=== PATIENT | male | born 1975 | race Caucasian/White ===

== ENCOUNTER 2017-10-19 17:57 | Inpatient (IN) | payer OTHER ==
[2017-10-19] MEDS ORDERED: NORMAL SALINE 500 ML IV ONE (18:30)
[2017-10-19] MEDS ORDERED: DOXYCYCLINE HYCLATE INJ 100 MG VIAL IV ONE (18:30)
--- NOTE | 2017-10-19 18:31 | ER Document Report ---
ED Medical Screen (RME) - General Chief Complaint: Leg Pain Stated Complaint: LEFT LEG PAIN Time Seen by Provider: 10/19/17 18:27 TRAVEL OUTSIDE OF THE [place] IN LAST 30 DAYS: No - HPI Notes: 10/19/17 18:30 Left lower leg swelling and edema history of cellulitis in the past not diabetic - Related Data Allergies/Adverse Reactions: No Known Allergies Allergy (Unverified 10/18/14 14:46) Past Medical History - Social History Chew tobacco use (# tins/day): No Frequency of alcohol use: None Drug Abuse: None - Past Medical History Cardiac Medical History: Reports: Hx Hypertension Renal/ Medical History: Denies: Hx Peritoneal Dialysis Psychiatric Medical History: Reports: Hx Depression - Immunizations Immunizations up to date: Yes Review of Systems - Review of Systems Musculoskeletal: Other - Leg swelling pain Physical Exam - Vital signs Vitals: Temp Pulse Resp BP Pulse Ox 99.8 F 117 H 20 171/94 H 96 10/19/17 18:03 10/19/17 18:03 10/19/17 18:03 10/19/17 18:03 10/19/17 18:03 - Respiratory Respiratory status: No respiratory distress Chest status: Nontender Breath sounds: Normal Chest palpation: Normal Course - Vital Signs Vital signs: Temp Pulse Resp BP Pulse Ox 99.8 F 117 H 20 171/94 H 96 10/19/17 18:03 10/19/17 18:03 10/19/17 18:23 10/19/17 18:03 10/19/17 18:03
[2017-10-19 19:11] LABS: ABSOLUTE EOSINOPHILS # (AUTO) 0.1 10^3/uL (0.0-0.6); ABSOLUTE LYMPHOCYTES (AUTO) 1.3 10^3/uL (0.5-4.7); ABSOLUTE MONOCYTES (AUTO) 0.6 10^3/uL (0.1-1.4); ABSOLUTE NEUT (AUTO) 6.9 10^3/uL (1.7-8.2); BASOPHILS % (AUTO) 0.5 % (0-2); EOSINOPHILS % (AUTO) 0.7 % (0-6); HEMATOCRIT 48.8 % (37.9-51.0); HEMOGLOBIN 16.6 g/dL (13.5-17.0); LYMPHOCYTES % (AUTO) 14.6 % (13-45); MEAN CORPUSCULAR HEMOGLOBIN 31.3 pg (27.0-33.4); MEAN CORPUSCULAR VOLUME 92 fl (80-97); MONOCYTES % (AUTO) 6.8 % (3-13); PLATELET COUNT 239 10^3/uL (150-450); RED CELL DISTRIBUTION WIDTH 13.7 % (11.5-14.0); SEGMENTED NEUTROPHILS % (AUTO) 77.4 % (42-78); TOTAL CELLS COUNTED % (AUTO) 100 %; WHITE BLOOD COUNT 8.9 10^3/uL (4.0-10.5)
--- NOTE | 2017-10-19 19:30 | ER Document Report ---
ED Extremity Problem, Lower - General Chief Complaint: Leg Pain Stated Complaint: LEFT LEG PAIN Time Seen by Provider: 10/19/17 18:27 Notes: 42-year-old male patient to the emergency department chief complaint of left lower extremity pain and swelling. Patient states that he has redness and swelling. Thinks that he has MRSA. Has had in the past. Followed by Dr. Delgado but has not seen him in several years but wants to be as patient still. Also complaining of mild cough. Intermittent shortness of breath. TRAVEL OUTSIDE OF THE [place] IN LAST 30 DAYS: No - HPI Patient complains to provider of: Pain, Swelling Location: Leg Where: Home Onset/Duration: Gradual Quality of pain: Throbbing Severity: Moderate Pain Level: 3 - Related Data Allergies/Adverse Reactions: No Known Allergies Allergy (Unverified 10/18/14 14:46) Past Medical History - General Information source: Patient - Social History Smoking Status: Never Smoker Chew tobacco use (# tins/day): No Frequency of alcohol use: None Drug Abuse: None Lives with: Family Family History: Reviewed & Not Pertinent Patient has suicidal ideation: No Patient has homicidal ideation: No - Past Medical History Cardiac Medical History: Reports: Hx Hypertension Renal/ Medical History: Denies: Hx Peritoneal Dialysis Psychiatric Medical History: Reports: Hx Depression - Immunizations Immunizations up to date: Yes Review of Systems - Review of Systems Constitutional: No symptoms reported EENT: No symptoms reported Cardiovascular: No symptoms reported Respiratory: Cough, Short of breath, Wheezing Gastrointestinal: No symptoms reported Genitourinary: No symptoms reported Male Genitourinary: No symptoms reported Musculoskeletal: See HPI, Leg swelling, Ankle swelling Skin: Change in color, Other - Possible cellulitis. Hematologic/Lymphatic: No symptoms reported Neurological/Psychological: No symptoms reported Physical Exam - Vital signs Vitals: Temp Pulse Resp BP Pulse Ox 99.8 F 117 H 20 171/94 H 96 10/19/17 18:03 10/19/17 18:03 10/19/17 18:03 10/19/17 18:03 10/19/17 18:03 Interpretation: Tachycardic - General General appearance: Appears well, Alert - HEENT Head: Normocephalic, Atraumatic Eyes: Normal Pupils: PERRL - Respiratory Respiratory status: No respiratory distress Chest status: Nontender Breath sounds: Nonproductive cough. No: Rales, Rhonchi Chest palpation: Normal - Cardiovascular Rhythm: Tachycardia Heart sounds: Normal auscultation Murmur: No - Abdominal Inspection: Normal Distension: No distension Bowel sounds: Normal Tenderness: Nontender Organomegaly: No organomegaly - Back Back: Normal, Nontender - Extremities General upper extremity: Normal inspection, Nontender, Normal color, Normal ROM , Normal temperature General lower extremity: Other - Patient has a swollen left lower extremity from the knee down. Red, warm to the touch. No lymphangitic streaking. pedis pulses intact bilateral lower extremity. Left lower extremity remarkably swollen as compared to the right lower extremity. No: Delmar's sign - Neurological Neuro grossly intact: Yes Cognition: Normal Orientation: AAOx4 John Coma Scale Eye Opening: Spontaneous Herscher Coma Scale Verbal: Oriented Herscher Coma Scale Motor: Obeys Commands Herscher Coma Scale Total: 15 Speech: Normal Motor strength normal: LUE, RUE, LLE, RLE Sensory: Normal - Psychological Associated symptoms: Normal affect, Normal mood - Skin Skin Temperature: Warm Skin Moisture: Dry Skin Color: Other - Redness noted to the left lower extremity from the knee down , NO obvious draining lesions Course - Re-evaluation Re-evalutation: 10/19/17 19:44 Patient does not have a fever. Is tachycardic with the left lower extremity swelling. Will need to rule out DVT and PE if DVT study is positive. More likely this represents cellulitis. Patient is a patient of Dr. Palmers. Will consult with him for possible admit as well. 10/19/17 21:10 Laboratory 10/19/17 10/19/17 18:51 18:51 WBC 8.9 RBC 5.30 Hgb 16.6 Hct 48.8 MCV 92 MCH 31.3 MCHC 34.0 RDW 13.7 Plt Count 239 Seg Neutrophils % 77.4 Lymphocytes % 14.6 Monocytes % 6.8 Eosinophils % 0.7 Basophils % 0.5 Absolute Neutrophils 6.9 Absolute Lymphocytes 1.3 Absolute Monocytes 0.6 Absolute Eosinophils 0.1 Absolute Basophils 0.0 Sodium 139.5 Potassium 4.3 Chloride 98 Carbon Dioxide 27 Anion Gap 15 BUN 13 Creatinine 0.83 Est GFR ( Amer) > 60 Est GFR (Non-Af Amer) > 60 Glucose 198 H Calcium 10.3 H Chest X-Ray 06/12/18 19:39 IMPRESSION: Borderline cardiomegaly without CHF. She with extremely swollen red leg mild tachycardia and low-grade fever. More likely this represents cellulitis. Preliminary report on ultrasound does not represent a DVT. Patient requests being admitted by Dr. Delgado if needed. At this time I think patient would benefit from admission. Patient likely has diabetes but undiagnosed as well. Consulted with Dr. Delgado. Will admit at this time. - Vital Signs Vital signs: Temp Pulse Resp BP Pulse Ox 99.8 F 117 H 20 171/94 H 96 10/19/17 18:03 10/19/17 18:03 10/19/17 18:23 10/19/17 18:03 10/19/17 18:03 - Laboratory Result Diagrams: 10/19/17 18:51 10/19/17 18:51 Laboratory results interpreted by me: 10/19/17 18:51 Glucose 198 H Calcium 10.3 H Discharge - Discharge Clinical Impression: Left leg cellulitis Condition: Good Disposition: ADMITTED INPATIENT Admitting Provider: Danny Unit Admitted: Medical Floor
[2017-10-19] MEDS ORDERED: KETOROLAC TROMETHAMINE INJ/PF 30 MG/1 ML SDV IV ONE (19:33)
[2017-10-19 19:43] LABS: ANION GAP 15 (5-19); BLOOD UREA NITROGEN 13 mg/dL (7-20); CALCIUM 10.3 mg/dL (8.4-10.2); CARBON DIOXIDE 27 mmol/L (22-30); CHLORIDE 98 mmol/L (98-107); GLUCOSE 198 mg/dL (75-110); POTASSIUM 4.3 mmol/L (3.6-5.0); SODIUM 139.5 mmol/L (137-145)
[2017-10-19] MEDS ORDERED: AMPICILLIN SOD/SULBACTAM 3 GM VIAL IV ONE (21:07)
--- NOTE | 2017-10-19 21:08 | RADIOLOGY REPORT (SQ) ---
EXAM DESCRIPTION: CHEST SINGLE VIEW COMPLETED DATE/TIME: 10/19/2017 9:00 pm REASON FOR STUDY: sob COMPARISON: 10/20/2014 EXAM PARAMETERS: NUMBER OF VIEWS: One view. TECHNIQUE: Single frontal radiographic view of the chest acquired. RADIATION DOSE: NA LIMITATIONS: None. FINDINGS: LUNGS AND PLEURA: No opacities, masses or pneumothorax. No pleural effusion. MEDIASTINUM AND HILAR STRUCTURES: No masses. Contour normal. HEART AND VASCULAR STRUCTURES: Cardiac silhouette is mildly enlarged. BONES: No acute findings. HARDWARE: None in the chest. OTHER: No other significant finding. IMPRESSION: Borderline cardiomegaly without CHF. TECHNICAL DOCUMENTATION: JOB ID: [id number] [employer]- All Rights Reserved Reading location - IP/workstation name: [email or web address]
[2017-10-19] MEDS ORDERED: HYDROCODONE/ACETAMINOPHEN 5-325 MG TABLET PO ONE (21:12)
[2017-10-19] MEDS ORDERED: CARVEDILOL 3.125 MG TABLET PO ONE (23:00)
[2017-10-19] MEDS ORDERED: AMPICILLIN SOD/SULBACTAM 3 GM VIAL IV PRN (23:41)
[2017-10-19] MEDS ORDERED: SERTRALINE HCL 50 MG TABLET PO ONE (23:45)
[2017-10-19] MEDS ORDERED: HYDROCHLOROTHIAZIDE 12.5 MG CAPSULE PO ONE (23:45)
[2017-10-20] MEDS ORDERED: AMPICILLIN SODIUM/SULBACTAM NA 3 GM in NORMAL SALINE 100 ML IV SCH ×2
[2017-10-20] MEDS: AMPICILLIN SODIUM/SULBACTAM NA 3 GM in NORMAL SALINE 100 ML IV SCH ×4 (02:58→22:00)
[2017-10-20 07:02] LABS: ABSOLUTE EOSINOPHILS # (AUTO) 0.1 10^3/uL (0.0-0.6); ABSOLUTE LYMPHOCYTES (AUTO) 1.7 10^3/uL (0.5-4.7); ABSOLUTE MONOCYTES (AUTO) 0.9 10^3/uL (0.1-1.4); ABSOLUTE NEUT (AUTO) 5.6 10^3/uL (1.7-8.2); BASOPHILS % (AUTO) 0.5 % (0-2); EOSINOPHILS % (AUTO) 1.7 % (0-6); HEMATOCRIT 40.9 % (37.9-51.0); LYMPHOCYTES % (AUTO) 19.8 % (13-45); MEAN CORPUSCULAR HEMOGLOBIN 31.7 pg (27.0-33.4); MEAN CORPUSCULAR HGB CONC 34.4 g/dL (32.0-36.0); MEAN CORPUSCULAR VOLUME 92 fl (80-97); MONOCYTES % (AUTO) 10.9 % (3-13); PLATELET COUNT 207 10^3/uL (150-450); RED BLOOD COUNT 4.44 10^6/uL (4.35-5.55); RED CELL DISTRIBUTION WIDTH 13.7 % (11.5-14.0); SEGMENTED NEUTROPHILS % (AUTO) 67.1 % (42-78); TOTAL CELLS COUNTED % (AUTO) 100 %; WHITE BLOOD COUNT 8.3 10^3/uL (4.0-10.5)
[2017-10-20 07:09] LABS: ANION GAP 11 (5-19); BLOOD UREA NITROGEN 14 mg/dL (7-20); CALCIUM 9.1 mg/dL (8.4-10.2); CARBON DIOXIDE 25 mmol/L (22-30); CHLORIDE 102 mmol/L (98-107); GLUCOSE 258 mg/dL (75-110); POTASSIUM 3.8 mmol/L (3.6-5.0); SODIUM 138.4 mmol/L (137-145)
[2017-10-20 07:10] LABS: HEMOGLOBIN 14.1 g/dL (13.5-17.0)
--- NOTE | 2017-10-20 08:06 | XCELERA REPORT ---
[address] [address] Lower Extremity Venous Evaluation Name: MAXIMILIAN TORRES Age: 42 yrs Gender: Male : 1975 Patient Status: Emergency Patient Location: ER Study Date: 10/19/2017 08:08 PM Procedure: Color flow and duplex imaging of the veins of the left lower extremity as well as the right Common Femoral vein. Reason For Study: lle swelling Ordering Physician: NICHOLAS EMMANUEL Performed By: Sadaf Salinas Right Sided Venous Evaluation The right common femoral vein is fully compressible. Spontaneous and phasic flow is present in the right common femoral vein. Left Sided Venous Evaluation Normal vessel filling wall to wall, compression and augmentation as well as Colour flow down to the infrageniculate veins. Interpretation Summary No duplex evidence of DVT or obstruction in the left lower extremity nor in the right Common Femoral vein. : NICHOLAS EMMANUEL > Obdulio Betancourt
[2017-10-20] MEDS ORDERED: ACETAMINOPHEN 325 MG TABLET ONE (08:54)
[2017-10-20] MEDS: HYDROCHLOROTHIAZIDE 12.5 MG CAPSULE PO SCH (09:05)
[2017-10-20] MEDS: CARVEDILOL 3.125 MG TABLET PO SCH ×2 (09:06→22:00)
[2017-10-20] MEDS: SERTRALINE HCL 50 MG TABLET PO SCH (09:09)
[2017-10-20] MEDS: ENOXAPARIN SODIUM INJ 40 MG/0.4 ML DISP.SYRIN SUBCUT SCH (09:09)
--- NOTE | 2017-10-20 18:52 | PDOC H&P ---
History of Present Illness Admission Date/PCP: 10/19/17 21:26 History of Present Illness: MAXIMILIAN TORRES is a 42 year old male, He came to the emergency room for evaluation of severe redness of the left leg, and swelling for the last few days. Patient follows with me in the office but I have not seen him in 3 years when he came to emergency room he wants me to admit same to the hospital because this was recommended by the emergency room physician, he does not have a documented history of diabetes but the hemoglobin A1c was 10.5 his serum glucose was about 200 suggesting is a diabetic but was not diagnosed further questioning he admitted to polyuria polydipsia. There is severe inflammation of the leg tender to touch the CRP/C-reactive protein is 485, it should be 0, ESR is 78 it should be 0-20..A venous Doppler was done in the emergency room, it was negative for deep vein thrombosis Past Medical History Cardiac Medical History: Reports: Hypertension Pulmonary Medical History: Reports: Pneumonia Neurological Medical History: Reports: Migraine Endocrine Medical History: Reports: Obesity Psychiatric Medical History: Reports: Depression Social History Lives with: Family Smoking Status: Never Smoker Frequency of Alcohol Use: Rare Hx Recreational Drug Use: No Drugs: None Hx Prescription Drug Abuse: No Family History Family History: Reviewed & Not Pertinent Parental Family History Reviewed: Yes Children Family History Reviewed: Yes Sibling(s) Family History Reviewed.: Yes Medication/Allergy Home Medications: Carvedilol [Coreg 3.125 mg Tablet] 3.125 mg PO Q12 10/19/17 Hydrochlorothiazide [Hydrodiuril 12.5 mg Capsule] 12.5 mg PO DAILY 10/19/17 Sertraline HCl [Zoloft 50 mg Tablet] 50 mg PO DAILY 10/19/17 Allergies/Adverse Reactions: No Known Allergies Allergy (Unverified 10/18/14 14:46) Review of Systems Constitutional: ABSENT: chills, fever(s), headache(s), weight gain, weight loss Eyes: ABSENT: visual disturbances Ears: ABSENT: hearing changes Cardiovascular: ABSENT: chest pain, dyspnea on exertion, edema, orthropnea, palpitations Respiratory: ABSENT: cough, hemoptysis Gastrointestinal: ABSENT: abdominal pain, constipation, diarrhea, hematemesis, hematochezia, nausea, vomiting Genitourinary: ABSENT: dysuria, hematuria Musculoskeletal: ABSENT: joint swelling Integumentary: PRESENT: erythema. ABSENT: rash, wounds Neurological: ABSENT: abnormal gait, abnormal speech, confusion, dizziness, focal weakness, syncope Psychiatric: ABSENT: anxiety, depression, homidical ideation, suicidal ideation Endocrine: PRESENT: heat intolerance, polydipsia, polyuria Hematologic/Lymphatic: ABSENT: easy bleeding, easy bruising, lymphadenopathy Physical Exam Vital Signs: Temp Pulse Resp BP Pulse Ox 98.5 F 92 18 142/83 H 95 10/20/17 15:43 10/20/17 15:43 10/20/17 15:43 10/20/17 15:43 10/20/17 15:43 Intake & Output 10/19/17 10/20/17 10/21/17 06:59 06:59 06:59 Intake Total 1493 Balance 1493 Weight 159.3 kg General appearance: PRESENT: no acute distress, well-developed, well-nourished Head exam: PRESENT: atraumatic, normocephalic Eye exam: PRESENT: conjunctiva pink, EOMI, PERRLA. ABSENT: scleral icterus Ear exam: PRESENT: normal external ear exam Mouth exam: PRESENT: moist, tongue midline Neck exam: PRESENT: full ROM Respiratory exam: PRESENT: clear to auscultation aniya Cardiovascular exam: PRESENT: RRR, +S1, +S2 Vascular exam: PRESENT: normal capillary refill GI/Abdominal exam: PRESENT: normal bowel sounds, soft Rectal exam: PRESENT: deferred Extremities exam: PRESENT: other - Severe erythema, swelling of the left leg, tender to touch Neurological exam: PRESENT: alert, awake, oriented to person, oriented to place , oriented to time, oriented to situation, CN II-XII grossly intact Psychiatric exam: PRESENT: appropriate affect, normal mood Skin exam: PRESENT: dry, intact, warm Results Laboratory Results: 10/20/17 06:46 10/20/17 06:46 10/20/17 10/20/17 06:46 06:46 WBC 8.3 RBC 4.44 Hgb 14.1 D Hct 40.9 MCV 92 MCH 31.7 MCHC 34.4 RDW 13.7 Plt Count 207 Seg Neutrophils % 67.1 Lymphocytes % 19.8 Monocytes % 10.9 Eosinophils % 1.7 Basophils % 0.5 Absolute Neutrophils 5.6 Absolute Lymphocytes 1.7 Absolute Monocytes 0.9 Absolute Eosinophils 0.1 Absolute Basophils 0.0 Sodium 138.4 Potassium 3.8 Chloride 102 Carbon Dioxide 25 Anion Gap 11 BUN 14 Creatinine 0.79 Est GFR ( Amer) > 60 Est GFR (Non-Af Amer) > 60 Glucose 258 H Calcium 9.1 Impressions: Chest X-Ray 10/19/17 19:39 IMPRESSION: Borderline cardiomegaly without CHF. Assessment & Plan - Diagnosis (1) Left leg cellulitis Is this a current diagnosis for this admission?: Yes Plan: Start IV antibiotic Unasyn (2) New onset type 1 diabetes mellitus, uncontrolled Is this a current diagnosis for this admission?: Yes Plan: Start IV fluid diabetic education (3) Morbid obesity Is this a current diagnosis for this admission?: Yes
[2017-10-20] MEDS ORDERED: DEXTROSE 50%-WATER 25 GM/50 ML DISP.SYRIN IV PRN ×2 (18:54)
[2017-10-20] MEDS ORDERED: DEXTROSE 40% GEL 15 GM TUBE PO PRN ×2 (18:54)
[2017-10-20] MEDS ORDERED: GLUCAGON,HUMAN RECOMB 1 MG INJ IM PRN (18:54)
[2017-10-20] MEDS: CLINDAMYCIN 600 MG/D5W RTU 600 MG/50 ML RTUPB IV SCH (22:00)
[2017-10-20] MEDS: INSULIN LISPRO 100 UNIT/ML 3 ML VIAL SUBCUT PRN (23:36)
[2017-10-20] MEDS: ACETAMINOPHEN 325 MG TABLET PO PRN (23:55)
[2017-10-21] MEDS: AMPICILLIN SODIUM/SULBACTAM NA 3 GM in NORMAL SALINE 100 ML IV SCH ×4 (03:13→20:34)
[2017-10-21] MEDS: CLINDAMYCIN 600 MG/D5W RTU 600 MG/50 ML RTUPB IV SCH ×3 (05:33→22:02)
[2017-10-21] MEDS: ACETAMINOPHEN 325 MG TABLET PO PRN ×2 (05:33→20:34)
[2017-10-21 06:46] LABS: HEMATOCRIT 41.1 % (37.9-51.0); MEAN CORPUSCULAR HGB CONC 33.9 g/dL (32.0-36.0); MEAN CORPUSCULAR VOLUME 91 fl (80-97); PLATELET COUNT 251 10^3/uL (150-450); RED BLOOD COUNT 4.51 10^6/uL (4.35-5.55); RED CELL DISTRIBUTION WIDTH 13.7 % (11.5-14.0); WHITE BLOOD COUNT 8.3 10^3/uL (4.0-10.5)
[2017-10-21 06:58] LABS: ANION GAP 9 (5-19); BLOOD UREA NITROGEN 11 mg/dL (7-20); CARBON DIOXIDE 28 mmol/L (22-30); CHLORIDE 103 mmol/L (98-107); GLUCOSE 231 mg/dL (75-110); POTASSIUM 3.6 mmol/L (3.6-5.0); SODIUM 140.2 mmol/L (137-145)
[2017-10-21 07:40] LABS: ABSOLUTE LYMPHOCYTES# (MANUAL) 2.2 10^3/uL (0.5-4.7); ABSOLUTE MONOCYTES # (MANUAL) 1.1 10^3/uL (0.1-1.4); ABSOLUTE NEUTROPHILS# (MANUAL) 4.6 10^3/uL (1.7-8.2); BAND NEUTROPHILS % (MANUAL) 1 % (3-5); BASOPHILS % (MANUAL) 2 % (0-2); EOSINOPHILS % (MANUAL) 3 % (0-6); LYMPHOCYTES % (MANUAL) 24 % (13-45); METAMYELOCYTES % (MANUAL) 1 % (0); MONOCYTES % (MANUAL) 13 % (3-13); SEGMENTED NEUTROPHILS % (MAN) 54 % (42-78); TOTAL CELLS COUNTED 100
[2017-10-21 07:41] LABS: HYPOCHROMASIA SLIGHT; PLATELET COMMENT ADEQUATE; POLYCHROMASIA SLIGHT; TOXIC GRANULATION 1+
[2017-10-21] MEDS: METFORMIN HCL 500 MG TABLET PO SCH ×2 (08:11→16:03)
[2017-10-21] MEDS: INSULIN LISPRO 100 UNIT/ML 3 ML VIAL SUBCUT PRN ×2 (08:11→12:54)
[2017-10-21] MEDS: ENOXAPARIN SODIUM INJ 40 MG/0.4 ML DISP.SYRIN SUBCUT SCH (09:58)
[2017-10-21] MEDS: CARVEDILOL 3.125 MG TABLET PO SCH ×2 (09:59→22:02)
[2017-10-21] MEDS: SERTRALINE HCL 50 MG TABLET PO SCH (09:59)
[2017-10-21] MEDS: HYDROCHLOROTHIAZIDE 12.5 MG CAPSULE PO SCH (10:00)
[2017-10-21] MEDS: NORMAL SALINE 1000 ML 1,000 ML IV PRN (15:58)
--- NOTE | 2017-10-21 20:02 | PDOC PROGRESS REPORT ---
Subjective Progress Note for:: 10/21/17 Subjective:: He has severe cellulitis, on double antibiotic, newly diagnosed type 2 diabetes Reason For Visit: CELLULITIS, MORBID OBESITY Physical Exam Vital Signs: Temp Pulse Resp BP Pulse Ox 97.8 F 83 18 133/88 H 94 10/21/17 15:43 10/21/17 15:43 10/21/17 15:43 10/21/17 15:43 10/21/17 15:43 Intake & Output 10/20/17 10/21/17 10/22/17 06:59 06:59 06:59 Intake Total 2613 2227 Balance 2613 2227 Weight 159.3 kg 160.3 kg General appearance: PRESENT: no acute distress Eye exam: PRESENT: PERRLA Respiratory exam: PRESENT: clear to auscultation aniya Cardiovascular exam: PRESENT: +S1, +S2 GI/Abdominal exam: PRESENT: soft Extremities exam: PRESENT: other - Left leg erythema, swelling Neurological exam: PRESENT: alert, CN II-XII grossly intact Results Laboratory Results: 10/21/17 06:35 10/21/17 06:35 10/21/17 10/21/17 06:35 06:35 WBC 8.3 RBC 4.51 Hgb 14.0 Hct 41.1 MCV 91 MCH 31.0 MCHC 33.9 RDW 13.7 Plt Count 251 Seg Neutrophils % Not Reportable Lymphocytes % Not Reportable Monocytes % Not Reportable Eosinophils % Not Reportable Basophils % Not Reportable Absolute Neutrophils Not Reportable Absolute Lymphocytes Not Reportable Absolute Monocytes Not Reportable Absolute Eosinophils Not Reportable Absolute Basophils Not Reportable Sodium 140.2 Potassium 3.6 Chloride 103 Carbon Dioxide 28 Anion Gap 9 BUN 11 Creatinine 0.69 Est GFR ( Amer) > 60 Est GFR (Non-Af Amer) > 60 Glucose 231 H Calcium 9.0 Impressions: Chest X-Ray 10/19/17 19:39 IMPRESSION: Borderline cardiomegaly without CHF. Assessment & Plan - Diagnosis (1) Left leg cellulitis Is this a current diagnosis for this admission?: Yes Plan: Continue IV antibiotic (2) New onset type 1 diabetes mellitus, uncontrolled Is this a current diagnosis for this admission?: Yes (3) Morbid obesity Is this a current diagnosis for this admission?: Yes
[2017-10-22] MEDS: AMPICILLIN SODIUM/SULBACTAM NA 3 GM in NORMAL SALINE 100 ML IV SCH ×4 (02:45→22:13)
[2017-10-22] MEDS: CLINDAMYCIN 600 MG/D5W RTU 600 MG/50 ML RTUPB IV SCH ×3 (05:10→22:14)
[2017-10-22 06:38] LABS: HEMATOCRIT 41.2 % (37.9-51.0); HEMOGLOBIN 14.1 g/dL (13.5-17.0); MEAN CORPUSCULAR HEMOGLOBIN 31.3 pg (27.0-33.4); MEAN CORPUSCULAR HGB CONC 34.2 g/dL (32.0-36.0); MEAN CORPUSCULAR VOLUME 92 fl (80-97); PLATELET COUNT 295 10^3/uL (150-450); RED CELL DISTRIBUTION WIDTH 14.1 % (11.5-14.0); WHITE BLOOD COUNT 9.1 10^3/uL (4.0-10.5)
[2017-10-22 06:48] LABS: ANION GAP 12 (5-19); BLOOD UREA NITROGEN 10 mg/dL (7-20); CALCIUM 9.2 mg/dL (8.4-10.2); CARBON DIOXIDE 29 mmol/L (22-30); CHLORIDE 100 mmol/L (98-107); GLUCOSE 160 mg/dL (75-110); POTASSIUM 4.4 mmol/L (3.6-5.0); SODIUM 140.6 mmol/L (137-145)
[2017-10-22 07:40] LABS: ABSOLUTE LYMPHOCYTES# (MANUAL) 2.2 10^3/uL (0.5-4.7); ABSOLUTE MONOCYTES # (MANUAL) 1.4 10^3/uL (0.1-1.4); BAND NEUTROPHILS % (MANUAL) 1 % (3-5); BASOPHILS % (MANUAL) 1 % (0-2); EOSINOPHILS % (MANUAL) 5 % (0-6); LYMPHOCYTES % (MANUAL) 23 % (13-45); METAMYELOCYTES % (MANUAL) 3 % (0); MONOCYTES % (MANUAL) 15 % (3-13); SEGMENTED NEUTROPHILS % (MAN) 51 % (42-78); TOTAL CELLS COUNTED 100
[2017-10-22 07:41] LABS: HYPOCHROMASIA SLIGHT; PLATELET COMMENT ADEQUATE; POLYCHROMASIA 1+; TOXIC GRANULATION SLIGHT
[2017-10-22] MEDS: SERTRALINE HCL 50 MG TABLET PO SCH (10:22)
[2017-10-22] MEDS: NORMAL SALINE 1000 ML 1,000 ML IV PRN ×2 (10:26→14:52)
[2017-10-22] MEDS: HYDROCHLOROTHIAZIDE 12.5 MG CAPSULE PO SCH (10:26)
[2017-10-22] MEDS: METFORMIN HCL 500 MG TABLET PO SCH ×2 (10:26→17:15)
[2017-10-22] MEDS: CARVEDILOL 3.125 MG TABLET PO SCH ×2 (10:27→22:13)
[2017-10-22] MEDS: ENOXAPARIN SODIUM INJ 40 MG/0.4 ML DISP.SYRIN SUBCUT SCH (10:28)
--- NOTE | 2017-10-22 20:55 | PDOC PROGRESS REPORT ---
Subjective Progress Note for:: 10/22/17 Subjective:: The cellulitis improved Reason For Visit: CELLULITIS, MORBID OBESITY Physical Exam Vital Signs: Temp Pulse Resp BP Pulse Ox 98.4 F 81 16 153/86 H 97 10/22/17 15:46 10/22/17 15:46 10/22/17 15:46 10/22/17 15:46 10/22/17 15:46 Intake & Output 10/21/17 10/22/17 10/23/17 06:59 06:59 06:59 Intake Total 2613 3527 2301 Balance 2613 3527 2301 Weight 160.3 kg 160.3 kg General appearance: PRESENT: morbidly obese Head exam: PRESENT: atraumatic, normocephalic Eye exam: PRESENT: PERRLA. ABSENT: scleral icterus Ear exam: PRESENT: normal external ear exam Mouth exam: PRESENT: moist, tongue midline Neck exam: PRESENT: full ROM Respiratory exam: PRESENT: clear to auscultation aniya Cardiovascular exam: PRESENT: RRR, +S1, +S2 Pulses: PRESENT: normal dorsalis pedis pul, +2 pedal pulses bilateral Vascular exam: PRESENT: normal capillary refill GI/Abdominal exam: PRESENT: normal bowel sounds, soft Rectal exam: PRESENT: deferred Neurological exam: PRESENT: alert, awake, oriented to person, oriented to place , oriented to time, oriented to situation, CN II-XII grossly intact. ABSENT: motor sensory deficit Psychiatric exam: PRESENT: appropriate affect, normal mood. ABSENT: homicidal ideation, suicidal ideation Skin exam: PRESENT: dry, erythema, intact, warm Results Laboratory Results: 10/22/17 05:32 10/22/17 05:32 10/22/17 10/22/17 05:32 05:32 WBC 9.1 RBC 4.50 Hgb 14.1 Hct 41.2 MCV 92 MCH 31.3 MCHC 34.2 RDW 14.1 H Plt Count 295 Seg Neutrophils % Not Reportable Lymphocytes % Not Reportable Monocytes % Not Reportable Eosinophils % Not Reportable Basophils % Not Reportable Absolute Neutrophils Not Reportable Absolute Lymphocytes Not Reportable Absolute Monocytes Not Reportable Absolute Eosinophils Not Reportable Absolute Basophils Not Reportable Sodium 140.6 Potassium 4.4 Chloride 100 Carbon Dioxide 29 Anion Gap 12 BUN 10 Creatinine 0.78 Est GFR ( Amer) > 60 Est GFR (Non-Af Amer) > 60 Glucose 160 H Calcium 9.2 Impressions: Chest X-Ray 10/19/17 19:39 IMPRESSION: Borderline cardiomegaly without CHF. Assessment & Plan - Diagnosis (1) Left leg cellulitis Is this a current diagnosis for this admission?: Yes Plan: Continue antibiotic (2) New onset type 1 diabetes mellitus, uncontrolled Is this a current diagnosis for this admission?: Yes (3) Morbid obesity Is this a current diagnosis for this admission?: Yes
[2017-10-23] MEDS: AMPICILLIN SODIUM/SULBACTAM NA 3 GM in NORMAL SALINE 100 ML IV SCH ×2 (02:50→08:31)
[2017-10-23] MEDS: CLINDAMYCIN 600 MG/D5W RTU 600 MG/50 ML RTUPB IV SCH (05:19)
[2017-10-23] MEDS: METFORMIN HCL 500 MG TABLET PO SCH (08:28)
[2017-10-23] MEDS: SERTRALINE HCL 50 MG TABLET PO SCH (09:22)
[2017-10-23] MEDS: CARVEDILOL 3.125 MG TABLET PO SCH (09:22)
--- NOTE | 2017-10-23 11:53 | PDOC DISCHARGE SUMMARY ---
General - Admit/Disc Date/PCP Admission Date/Primary Care Provider: 10/19/17 21:26 Discharge Date: 10/23/17 - Discharge Diagnosis (1) Left leg cellulitis Is this a current diagnosis for this admission?: Yes (2) New onset type 1 diabetes mellitus, uncontrolled Is this a current diagnosis for this admission?: Yes (3) Morbid obesity Is this a current diagnosis for this admission?: Yes - Additional Information Prescriptions: Amoxicillin/Potassium Clav [Augmentin 875-125 Tablet] 1 each PO BID #14 tablet Clindamycin HCl 300 mg PO QID #28 capsule Metformin HCl [Glucophage 500 mg Tablet] 1,000 mg PO BIDACBS #60 tablet Home Medications: Carvedilol [Coreg 3.125 mg Tablet] 3.125 mg PO Q12 10/19/17 Hydrochlorothiazide [Hydrodiuril 12.5 mg Capsule] 12.5 mg PO DAILY 10/19/17 Sertraline HCl [Zoloft 50 mg Tablet] 50 mg PO DAILY 10/19/17 Amoxicillin/Potassium Clav [Augmentin 875-125 Tablet] 1 each PO BID #14 tablet 10/23/17 Clindamycin HCl 300 mg PO QID #28 capsule 10/23/17 Metformin HCl [Glucophage 500 mg Tablet] 1,000 mg PO BIDACBS #60 tablet History of Present Illness History of Present Illness: MAXIMILIAN TORRES is a 42 year old male, He came to the emergency room for evaluation of severe redness of the left leg, and swelling for the last few days. Patient follows with me in the office but I have not seen him in 3 years when he came to emergency room he wants me to admit same to the hospital because this was recommended by the emergency room physician, he does not have a documented history of diabetes but the hemoglobin A1c was 10.5 his serum glucose was about 200 suggesting is a diabetic but was not diagnosed further questioning he admitted to polyuria polydipsia. There is severe inflammation of the leg tender to touch the CRP/C-reactive protein is 485, it should be 0, ESR is 78 it should be 0-20..A venous Doppler was done in the emergency room, it was negative for deep vein thrombosis Hospital Course Hospital Course: Patient was admitted for the management of left leg cellulitis, he was treated with IV antibiotic, Unasyn and clindamycin with very good results. He was also diagnosed with diabetes, newly diagnosed, He was not aware that he had diabetes before this admission, he was started on metformin, he was seen by dietary on was educated on diabetes management. There was improvement in the cellulitis, a venous Doppler was done DVT was ruled out. Physical Exam Vital Signs: Temp Pulse Resp BP Pulse Ox 97.6 F 85 18 168/100 H 96 10/23/17 07:58 10/23/17 07:58 10/23/17 07:58 10/23/17 07:58 10/23/17 07:58 Intake & Output 10/22/17 10/23/17 10/24/17 06:59 06:59 06:59 Intake Total 3527 4067 Balance 3527 4067 Weight 160.3 kg 160.3 kg General appearance: PRESENT: no acute distress, well-developed, well-nourished Head exam: PRESENT: atraumatic, normocephalic Eye exam: PRESENT: conjunctiva pink, EOMI, PERRLA Ear exam: PRESENT: normal external ear exam Mouth exam: PRESENT: moist, tongue midline Neck exam: PRESENT: full ROM Respiratory exam: PRESENT: clear to auscultation aniya Cardiovascular exam: PRESENT: RRR, +S1, +S2 Pulses: PRESENT: normal dorsalis pedis pul, +2 pedal pulses bilateral Vascular exam: PRESENT: normal capillary refill GI/Abdominal exam: PRESENT: normal bowel sounds, soft Rectal exam: PRESENT: deferred Neurological exam: PRESENT: alert, awake, oriented to person, oriented to place , oriented to time, oriented to situation, CN II-XII grossly intact Psychiatric exam: PRESENT: appropriate affect, normal mood Skin exam: PRESENT: dry, intact, warm Results Laboratory Results: 10/22/17 05:32 10/22/17 05:32 Impressions: Chest X-Ray 10/19/17 19:39 IMPRESSION: Borderline cardiomegaly without CHF. Qualifiers - * PATIENT BEING DISCHARGED WITH ANY OF THE FOLLOWING DIAGNOSIS: No
[2017-10-23 12:37] VITALS: BP 148/90
== END 2017-10-23 12:50 | disposition home or self-care (01) | DRG 603 ==
LOC: ER 17:57 → EH 21:26 → 4S 23:10
PROVIDERS: ADMIT Internal Medicine; ATTEND Internal Medicine
DX: L03.116 Cellulitis of left lower limb (principal); Z68.43 Body mass index [BMI] 50.0-59.9, adult; E66.01 Morbid (severe) obesity due to excess calories; E10.649 Type 1 diabetes mellitus with hypoglycemia without coma; I10 Essential (primary) hypertension; G43.909 Migraine, unspecified, not intractable, without status migrainosus; F32.9 Major depressive disorder, single episode, unspecified; Z86.14 Personal history of Methicillin resistant Staphylococcus aureus infection
CPT/HCPCS: 36415; 71045; 80048; 82962; 83036; 85025; 85652; 86140; 87040; 93971; 96365; 96366; 96375; 99285; J0295; J1815; J1885; J3490; J7030; J7040

== ENCOUNTER → 2020-02-05 | Outpatient (CLI) | payer OTHER ==
--- NOTE | 2020-02-05 11:35 | RADIOLOGY REPORT (SQ) ---
EXAM DESCRIPTION: CHEST PA/LATERAL IMAGES COMPLETED DATE/TIME: 02/05/2020 10:28 am REASON FOR STUDY: ESSENTIAL (PRIMARY) HYPERTENSION COMPARISON: PA and lateral views of the chest from 10/20/2014. EXAM PARAMETERS: NUMBER OF VIEWS: Two views. TECHNIQUE: PA and lateral views of the chest were obtained. RADIATION DOSE: NA. LIMITATIONS: None. FINDINGS: LUNGS AND PLEURA: No consolidation, pleural effusion or pneumothorax. MEDIASTINUM AND HILAR STRUCTURES: No mediastinal or hilar contour abnormality. HEART AND VASCULAR STRUCTURES: The cardiac silhouette and pulmonary vasculature are within normal klein its. BONES: No acute findings. HARDWARE: None in the chest. OTHER: No other finding. IMPRESSION: No acute cardiopulmonary process. TECHNICAL DOCUMENTATION: JOB ID: [id number] 2010 [employer]- All Rights Reserved Reading location - IP/workstation name: [email or web address]
== END ==
LOC: OD 10:05
PROVIDERS: ATTEND Internal Medicine
DX: I10 Essential (primary) hypertension (principal)
CPT/HCPCS: 71046

== ENCOUNTER 2020-02-15 22:23 | Inpatient (IN) | payer OTHER ==
[2020-02-15] MEDS ORDERED: ONDANSETRON HCL INJ/PF 4 MG/2 ML SDV IV ONE (23:50)
[2020-02-15] MEDS ORDERED: MORPHINE SULFATE 10 MG/ML INJ IV ONE (23:50)
--- NOTE | 2020-02-15 23:50 | ER Document Report ---
ED Medical Screen (RME) - General Chief Complaint: Abdominal Pain Stated Complaint: VOMITING Primary Care Provider: CANDIDO MAZA MD [Primary Care Provider] - Follow up as needed Notes: Patient is a 44-year-old white male with a history of diabetes who presents the emergency department with a chief complaint of bilateral flank pain that began earlier this evening. States the pain is severe. Associated with an episode of vomiting. States that he is had 2 episodes of urination since then without any noticeable difficulties. He states he had a bowel movement without trouble. He states he is unsure what is going on. Denies any pulsatile masses or swelling in the abdomen. Denies any family history or personal history of aneurysms. Denies any chest pain or shortness of breath. No testicular pain or swelling. I have treated and performed a rapid initial assessment of this patient. A comprehensive ED assessment and evaluation of the patient, analysis of test results and completion of medical decision making process will be conducted by additional ED providers. PHYSICAL EXAMINATION: GENERAL: Appears uncomfortable, diaphoretic. TRAVEL OUTSIDE OF THE [place] IN LAST 30 DAYS: No - Related Data Allergies/Adverse Reactions: No Known Allergies Allergy (Verified 02/15/20 23:35) Past Medical History - Social History Frequency of alcohol use: Rare Drug Abuse: None - Past Medical History Cardiac Medical History: Reports: Hx Hypertension Pulmonary Medical History: Reports: Hx Pneumonia Neurological Medical History: Reports: Hx Migraine Renal/ Medical History: Denies: Hx Peritoneal Dialysis Psychiatric Medical History: Reports: Hx Depression - Immunizations Immunizations up to date: Yes Physical Exam - Vital signs Vitals: Temp Pulse Resp BP Pulse Ox 98.4 F 81 20 164/94 H 100 02/15/20 22:33 02/15/20 22:33 02/15/20 22:33 02/15/20 22:33 02/15/20 22:33 Course - Vital Signs Vital signs: Temp Pulse Resp BP Pulse Ox 98.4 F 81 20 164/94 H 100 02/15/20 22:33 02/15/20 22:33 02/15/20 22:33 02/15/20 22:33 02/15/20 22:33 Doctor's Discharge - Discharge Referrals: CANDIDO MAZA MD [Primary Care Provider] - Follow up as needed
[2020-02-15] MEDS ORDERED: KETOROLAC TROMETHAMINE 60 MG/2 ML SDV IM ONE (23:52)
[2020-02-16] MEDS ORDERED: HYDROMORPHONE HCL INJ/PF 2 MG/ML AMPULE IV ONE ×2 (03:41→07:05)
[2020-02-16] MEDS ORDERED: ONDANSETRON HCL INJ/PF 4 MG/2 ML SDV IV ONE ×2 (03:41→07:05)
[2020-02-16] MEDS ORDERED: NORMAL SALINE 1000 ML 1,000 ML IV ONE ×2 (03:43→04:42)
--- NOTE | 2020-02-16 03:43 | ER Document Report ---
ED GI/ - General TRAVEL OUTSIDE OF THE [place] IN LAST 30 DAYS: No <MARK JOHN - Last Filed: 02/16/20 07:50> <SILVIA HORTON - Last Filed: 02/16/20 09:18> - General Chief Complaint: Abdominal Pain Stated Complaint: VOMITING Time Seen by Provider: 02/16/20 03:32 Primary Care Provider: CANDIDO MAZA MD [Primary Care Provider] - Follow up as needed Notes: Patient is a 44-year-old male that comes emergency department for chief complaint of sharp pain in the mid to upper abdomen and bilateral flank with multiple episodes of vomiting. Patient states the pain has been severe intermittently since 7 PM last night. He denies any urinary symptoms, fever, testicular pain or swelling, or trauma. Past medical history of obesity, denies alcohol, recreational drugs, smoking, or surgical history. He takes no daily medications. (MARK JOHN) - Related Data Allergies/Adverse Reactions: No Known Allergies Allergy (Verified 02/15/20 23:35) Past Medical History - General Information source: Patient - Social History Smoking Status: Never Smoker Frequency of alcohol use: Rare Drug Abuse: None Lives with: Family Family History: Reviewed & Not Pertinent - Past Medical History Cardiac Medical History: Reports: Hx Hypertension Pulmonary Medical History: Reports: Hx Pneumonia Neurological Medical History: Reports: Hx Migraine Renal/ Medical History: Denies: Hx Peritoneal Dialysis Psychiatric Medical History: Reports: Hx Depression - Immunizations Immunizations up to date: Yes <MARK JOHN - Last Filed: 02/16/20 07:50> Review of Systems - Review of Systems Constitutional: No symptoms reported EENT: No symptoms reported Cardiovascular: No symptoms reported Respiratory: No symptoms reported Gastrointestinal: See HPI Genitourinary: No symptoms reported Male Genitourinary: No symptoms reported Musculoskeletal: No symptoms reported Skin: No symptoms reported Hematologic/Lymphatic: No symptoms reported Neurological/Psychological: No symptoms reported <MARK JOHN - Last Filed: 02/16/20 07:50> Physical Exam <MARK JOHN - Last Filed: 02/16/20 07:50> - Vital signs Vitals: Temp Pulse Resp BP Pulse Ox 98.4 F 81 20 164/94 H 100 02/15/20 22:33 02/15/20 22:33 02/15/20 22:33 02/15/20 22:33 02/15/20 22:33 - Notes Notes: GENERAL: Patient is alert, cooperative, however he is obviously uncomfortable and appears to be in mild distress HEAD: Normocephalic, atraumatic. EYES: Pupils equal, round, and reactive to light. Extraocular movements intact. ENT: Oral mucosa moist, tongue midline. Oropharynx unremarkable. Airway patent. LUNGS: Clear to auscultation bilaterally, no wheezes, rales, or rhonchi. No respiratory distress. Non-tender chest wall. HEART: Regular rate and rhythm. No murmur ABDOMEN: Abdomen has a rigid very tender obvious umbilical hernia with some surrounding tenderness. No abnormal erythema. Otherwise unremarkable abdomen. Bowel sounds are still present. GENITOURINARY: No swelling, tenderness, trauma, or concerning findings EXTREMITIES: Moves all 4 extremities spontaneously. No edema, normal radial and dorsalis pedis pulses bilaterally. No cyanosis. BACK: no cervical, thoracic, lumbar midline tenderness. No saddle anesthesia, normal distal neurovascular exam. Moves all extremities in full range of motion. NEUROLOGICAL: Alert and oriented x3. Normal speech. Cranial nerves II through XII grossly intact. Strength 5/5 in all extremities. PSYCH: Somewhat agitated SKIN: Warm, dry, normal turgor. No rashes or lesions noted. (MARK JOHN) Course - Laboratory Result Diagrams: 02/16/20 03:47 02/16/20 03:47 <MARK JOHN - Last Filed: 02/16/20 07:50> - Laboratory Result Diagrams: 02/16/20 03:47 02/16/20 03:47 - Diagnostic Test Radiology reviewed: Reports reviewed <SILVIA HORTON - Last Filed: 02/16/20 09:18> - Re-evaluation Re-evalutation: Patient's physical exam is concerning for an incarcerated umbilical hernia. The area is very tender and firm. After Dilaudid patient became comfortable but I was still unable to reduce this. I will speak with general surgery. Patient states understanding and agreement. 02/16/20 04:45 Dr. Kinsey has evaluated the patient at bedside. He states he believes patient will need surgery for the hernia this morning, however in preparation for this he requests a CAT scan with oral and IV contrast be performed, patient is very agreeable with this. CBC, chemistry, lactic acid unremarkable. CAT scan pending. 02/16/20 08:00 Report/handoff given to Silvia Horton NP pending patient's CAT scan and surgical follow-up/care. (MARK JOHN) 02/16/20 08:58 CT has resulted in the patient does have an incarcerated umbilical hernia causing a mid small bowel obstruction. Attempt x 1 to call surgicalist. Patie nt was also noted to be hypertensive. Patient does have a history of elevated blood pressure and normally lisinopril. 10 mg of labetalol IV given to the patient. He will remain n.p.o. 02/16/20 09:[address] Lott in regards to CT scan. NG tube with low continuous suction. Pt. to be admitted. 02/16/20 09:18 Patient was updated on the plan of care as well as the CAT scan results. Ger james resting comfortably on stretcher. I did inform him that I will he will be getting an NG tube did discuss this with him. Patient denies questions at this time. Dr. Lott at the bedside. Patient placed for admission. (SILVIA HORTON) - Vital Signs Vital signs: Temp Pulse Resp BP Pulse Ox 98.5 F 83 17 201/120 H 96 02/16/20 08:24 02/16/20 08:24 02/16/20 08:24 02/16/20 08:24 02/16/20 08:24 - Laboratory Laboratory results interpreted by me: 02/16/20 02/16/20 02/16/20 03:47 03:47 06:41 Lymph % (Auto) 7.8 L Absolute Neuts (auto) 9.2 H Seg Neutrophils % 88.9 H Glucose 162 H Urine Protein 100 H Urine Ketones 20 H - Diagnostic Test Radiology results interpreted by me: 02/16/20 08:57 Abdomen/Pelvis CT 02/16/20 00:00 IMPRESSION: Umbilical hernia with an obstructed incarcerated small bowel loop, causing mid small bowel obstruction. (SILVIA HORTON) Discharge <MARK JOHN - Last Filed: 02/16/20 07:50> - Discharge Admitting Provider: Surgicalist Unit Admitted: Surgical Floor <SOL,SILVIA - Last Filed: 02/16/20 09:18> - Discharge Clinical Impression: Incarcerated umbilical hernia, Small bowel obstruction Condition: Fair Disposition: ADMITTED INPATIENT Referrals: CANDIDO MAZA MD [Primary Care Provider] - Follow up as needed
[2020-02-16 04:02] LABS: ABSOLUTE LYMPHOCYTES (AUTO) 0.8 10^3/uL (0.5-4.7); ABSOLUTE MONOCYTES (AUTO) 0.3 10^3/uL (0.1-1.4); ABSOLUTE NEUT (AUTO) 9.2 10^3/uL (1.7-8.2); BASOPHILS % (AUTO) 0.3 % (0-2); HEMATOCRIT 44.4 % (37.9-51.0); HEMOGLOBIN 15.7 g/dL (13.5-17.0); LYMPHOCYTES % (AUTO) 7.8 % (13-45); MEAN CORPUSCULAR HEMOGLOBIN 31.5 pg (27.0-33.4); MEAN CORPUSCULAR HGB CONC 35.3 g/dL (32.0-36.0); MEAN CORPUSCULAR VOLUME 89 fl (80-97); PLATELET COUNT 338 10^3/uL (150-450); RED BLOOD COUNT 4.97 10^6/uL (4.35-5.55); RED CELL DISTRIBUTION WIDTH 13.2 % (11.5-14.0); SEGMENTED NEUTROPHILS % (AUTO) 88.9 % (42-78); TOTAL CELLS COUNTED % (AUTO) 100 %; WHITE BLOOD COUNT 10.3 10^3/uL (4.0-10.5)
[2020-02-16 04:19] LABS: ALBUMIN 4.7 g/dL (3.5-5.0); ALKALINE PHOSPHATASE 118 U/L (38-126); ANION GAP 13 (5-19); ASPARTATE AMINO TRANSFERASE 38 U/L (17-59); BILIRUBIN,DIRECT 0.3 mg/dL (0.0-0.4); BILIRUBIN,TOTAL 0.9 mg/dL (0.2-1.3); BLOOD UREA NITROGEN 17 mg/dL (7-20); CALCIUM 10.1 mg/dL (8.4-10.2); CARBON DIOXIDE 23 mmol/L (22-30); CHLORIDE 107 mmol/L (98-107); GLUCOSE 162 mg/dL (75-110); POTASSIUM 4.4 mmol/L (3.6-5.0)
--- NOTE | 2020-02-16 04:49 | PDOC H&P ---
History of Present Illness Admission Date/PCP: CANDIDO MAZA MD Patient complains of: Umbilical pain History of Present Illness: MAXIMILIAN TORRES is a 44 year old male, obese, type 2 diabetes, hypertension, with pain and hard mass located in the umbilicus since yesterday evening 7 PM. The patient reports nausea and vomiting. Past Medical History Cardiac Medical History: Reports: Hypertension Pulmonary Medical History: Reports: Pneumonia Neurological Medical History: Reports: Migraine Psychiatric Medical History: Reports: Depression Social History Smoking Status: Never Smoker Frequency of Alcohol Use: Rare Hx Recreational Drug Use: No Drugs: None Hx Prescription Drug Abuse: No Family History Family History: Reviewed & Not Pertinent Parental Family History Reviewed: No Children Family History Reviewed: No Sibling(s) Family History Reviewed.: No Medication/Allergy Home Medications: Carvedilol [Coreg 3.125 mg Tablet] 3.125 mg PO Q12 10/19/17 Hydrochlorothiazide [Hydrodiuril 12.5 mg Tablet] 12.5 mg PO DAILY 10/19/17 Sertraline HCl [Zoloft 50 mg Tablet] 50 mg PO DAILY 10/19/17 Amoxicillin/Potassium Clav [Augmentin 875-125 Tablet] 1 each PO BID #14 tablet 10/23/17 Clindamycin HCl 300 mg PO QID #28 capsule 10/23/17 Metformin HCl [Glucophage 500 mg Tablet] 1,000 mg PO BIDACBS #60 tablet 10/23/17 Allergies/Adverse Reactions: No Known Allergies Allergy (Verified 02/15/20 23:35) Physical Exam Vital Signs: Temp Pulse Resp BP Pulse Ox 98.4 F 81 20 164/94 H 100 02/15/20 22:33 02/15/20 22:33 02/15/20 22:33 02/15/20 22:33 02/15/20 22:33 Intake & Output 02/14/20 02/15/20 02/16/20 06:59 06:59 06:59 Weight 149.685 kg General appearance: PRESENT: no acute distress, obese Head exam: PRESENT: atraumatic, normocephalic Eye exam: PRESENT: EOMI Mouth exam: PRESENT: moist, neck supple Neck exam: PRESENT: full ROM Respiratory exam: PRESENT: clear to auscultation aniya Cardiovascular exam: PRESENT: RRR GI/Abdominal exam: PRESENT: soft, other - He is, not distended, normal bowel sounds, hard tender mass located at the umbilicus, not reducible Rectal exam: PRESENT: deferred Extremities exam: PRESENT: full ROM Musculoskeletal exam: PRESENT: full ROM Psychiatric exam: PRESENT: appropriate affect Skin exam: PRESENT: warm Results Laboratory Results: 02/16/20 03:47 02/16/20 03:47 02/16/20 02/16/20 03:47 03:47 WBC 10.3 RBC 4.97 Hgb 15.7 Hct 44.4 MCV 89 MCH 31.5 MCHC 35.3 RDW 13.2 Plt Count 338 Seg Neutrophils % 88.9 H Sodium 143.3 Potassium 4.4 Chloride 107 Carbon Dioxide 23 Anion Gap 13 BUN 17 Creatinine 0.92 Est GFR ( Amer) > 60 Glucose 162 H Calcium 10.1 Total Bilirubin 0.9 AST 38 Alkaline Phosphatase 118 Total Protein 7.0 Albumin 4.7 Lipase 47.0 Assessment & Plan - Time Anticipated Discharge Disposition: Home, Self Care Anticipated Discharge Timeframe: within 72 hours - Plan Summary Plan Summary: Assessment: Hard, painful mass at the umbilicus as per known reducible umbilical hernia Content of the hernia none, CT scan pending Blood work within normal limits Type 2 diabetes Hypertension Morbid obesity BMI 47 Plan: N.p.o. IV fluids Obtain CT scan abdomen pelvis to review content of the head Open repair of the hernia today with possible use of mesh Admission to follow
[2020-02-16 08:09] LABS: AMORPHOUS SEDIMENT,URINE TRACE /HPF; APPEARANCE,URINE TURBID; BILIRUBIN,URINE NEGATIVE (NEGATIVE); COLOR,URINE YELLOW; GLUCOSE, URINE NEGATIVE (NEGATIVE); KETONES,URINE 20 mg/dL (NEGATIVE); PROTEIN,URINE 100 mg/dL (NEGATIVE); URINE SPECIFIC GRAVITY 1.026; UROBILINOGEN,URINE NEGATIVE mg/dL (<2.0)
[2020-02-16] MEDS ORDERED: LABETALOL HCL INJ 20 MG/4 ML DISP.SYRIN IV ONE (08:41)
--- NOTE | 2020-02-16 08:53 | RADIOLOGY REPORT (SQ) ---
EXAM DESCRIPTION: CT ABD/PELVIS WITH IV ORAL IMAGES COMPLETED DATE/TIME: 02/16/2020 8:06 am REASON FOR STUDY: eval hernia COMPARISON: None. TECHNIQUE: CT scan of the abdomen and pelvis performed using helical scanning technique with dynamic intravenous contrast injection. Patient drank a small amount of oral contrast. Images reviewed with lung, soft tissue, and bone windows. Reconstructed coronal and sagittal MPR images reviewed. Delayed images for evaluation of the urinary system also acquired. All images stored on PACS. All CT scanners at this facility use dose modulation, iterative reconstruction, and/or weight based d osing when appropriate to reduce radiation dose to as low as reasonably achievable (ALARA). [facility]: Dose Right [facility]: CareDose [facility]: Dose Right [facility]: Teradose 4D [facility]: PAX Streamline CONTRAST TYPE AND DOSE: contrast/concentration: Isovue 350.00 mmol/ml; Total Contrast Delivered: 100 .0 ml; Total Saline Delivered: 70.0 ml RENAL FUNCTION: None required. The patient is less than 50 years old. RADIATION DOSE: CT Rad equipment meets quality standard of care and radiation dose reduction techniq ues were employed. CTDIvol: 19.2 - 21.1 mGy. DLP: 2478 mGy-cm.. LIMITATIONS: None. FINDINGS: Patient drank a small amount of oral contrast. There is an umbilical hernia with an obstr ucted incarcerated small bowel loop, causing mid small bowel obstruction. This report was called to the emergency room attending practitioner, 0830 hours 02/16/2020, as a critical result. LOWER CHEST: No significant findings. No nodules or infiltrates. LIVER: Normal size. No masses. No dilated ducts. SPLEEN: Normal size. No focal lesions. PANCREAS: No masses. No significant calcifications. No adjacent inflammation or peripancreatic fluid collections. Pancreatic duct not dilated. GALLBLADDER: No identified stones by CT criteria. No inflammatory changes to suggest cholecystitis. ADRENAL GLANDS: No significant masses or asymmetry. RIGHT KIDNEY AND URETER: No solid masses. No significant calcifications. No hydronephrosis or hyd roureter. LEFT KIDNEY AND URETER: No solid masses. No significant calcifications. No hydronephrosis or hydr oureter. AORTA AND VESSELS: No aneurysm. No dissection. Renal arteries, SMA, celiac without stenosis. RETROPERITONEUM: No retroperitoneal adenopathy, hemorrhage or masses. BOWEL AND PERITONEAL CAVITY: Patient drank a small amount of oral contrast. There is an umbilical hernia with an obstructed incar cerated small bowel loop, causing mid small bowel obstruction. This report was called to the emergen cy room attending practitioner, 0830 hours 02/16/2020, as a critical result. Distal small bowel, colon decompressed. No free intraperitoneal air or free fluid. APPENDIX: Normal. PELVIS: No mass. No free fluid. Normal bladder. ABDOMINAL WALL: No masses. No hernias. BONES: No significant or acute findings. OTHER: No other significant finding. IMPRESSION: Umbilical hernia with an obstructed incarcerated small bowel loop, causing mid small bow el obstruction. TECHNICAL DOCUMENTATION: JOB ID: [id number] Quality ID # [id number]: Final reports with documentation of one or more dose reduction techniques (e.g., Au tomated exposure control, adjustment of the mA and/or kV according to patient size, use of iterative reconstruction technique) 2010 [employer]- All Rights Reserved Reading location - IP/workstation name: [email or web address]
[2020-02-16] MEDS ORDERED: ONDANSETRON HCL INJ/PF 4 MG/2 ML SDV IV PRN (09:10)
[2020-02-16] MEDS ORDERED: MORPHINE SULFATE 10 MG/ML INJ IV PRN ×2 (09:10→12:37)
--- NOTE | 2020-02-16 09:25 | Progress Note ---
Provider Note Provider Note: Patient seen and examined. CT scan reviewed. Patient does have a loop of small bowel incarcerated within his umbilical hernia. He does not have signs of peritonitis at present. Plan for urgent exploration with reduction of his hernia. I have discussed the possibility for bowel resection, and ostomy. The patient is in agreement with the treatment plan. Risk/benefits discussed, informed consent obtained, all questions answered.
[2020-02-16] MEDS: NORMAL SALINE 1000 ML 1,000 ML IV PRN ×2 (09:42→17:24)
[2020-02-16] MEDS ORDERED: LIDOCAINE 2% INJ-PF (20 MG/ML) 2 ML AMPUL ONE (10:20)
[2020-02-16] MEDS ORDERED: NEOSTIGMINE METHYLSULFATE 10 MG/10 ML VIAL ONE (10:20)
[2020-02-16] MEDS ORDERED: GLYCOPYRROLATE 1 MG/5 ML VIAL ONE (10:20)
[2020-02-16] MEDS ORDERED: BUPIVACAINE HCL 0.25 % INJ/PF (2.5 MG/1 ML) 30 ML VIAL ONE (10:59)
[2020-02-16] MEDS ORDERED: HYDROMORPHONE HCL INJ/PF 2 MG/ML AMPULE ONE (11:49)
[2020-02-16] MEDS ORDERED: MIDAZOLAM 2 MG/2 ML INJ ONE (11:49)
[2020-02-16] MEDS ORDERED: FENTANYL CITRATE INJ/PF 250 MCG/5 ML AMPULE ONE (11:49)
[2020-02-16] MEDS ORDERED: EPHEDRINE SULFATE INJ 50 MG/1 ML AMPULE ONE (11:49)
[2020-02-16] MEDS ORDERED: CEFOXITIN 1 GM/D5W RTU 2 GM/100 ML RTUPB IV ONE (11:50)
[2020-02-16] MEDS ORDERED: PROPOFOL INJ 200 MG/20 ML VIAL IV ONE (11:50)
[2020-02-16] MEDS ORDERED: DIPHENHYDRAMINE HCL 50 MG/ML VIAL IV PRN (12:37)
[2020-02-16] MEDS ORDERED: FENTANYL CITRATE INJ/PF 100 MCG/2 ML AMPUL IV PRN ×3 (12:37)
[2020-02-16] MEDS ORDERED: PROMETHAZINE HCL INJ 25 MG/1 ML VIAL IV PRN ×2 (12:37)
[2020-02-16] MEDS ORDERED: OXYCODONE-ACETAMINOPHEN 5-325 MG TABLET PO PRN ×2 (12:37)
[2020-02-16] MEDS ORDERED: MEPERIDINE HCL/PF INJ 25 MG/1 ML DISP.SYRIN IV PRN (12:37)
[2020-02-16] MEDS ORDERED: DEXTROSE 40% GEL 15 GM TUBE PO PRN ×2 (13:57)
[2020-02-16] MEDS ORDERED: DEXTROSE 50%-WATER 25 GM/50 ML DISP.SYRIN IV PRN ×2 (13:57)
[2020-02-16] MEDS ORDERED: GLUCAGON,HUMAN RECOMB 1 MG INJ IM PRN (13:57)
[2020-02-16] MEDS ORDERED: PHARMACY COMMUNICATION ORDER MC NR (14:00)
--- NOTE | 2020-02-16 14:42 | RADIOLOGY REPORT (SQ) ---
EXAM DESCRIPTION: KUB/ABDOMEN (SINGLE VIEW) IMAGES COMPLETED DATE/TIME: 02/16/2020 2:32 pm REASON FOR STUDY: Check Placement of NG Tube COMPARISON: None. NUMBER OF VIEWS: One view. TECHNIQUE: Supine radiographic image of the abdomen acquired for nasogastric tube placement. LIMITATIONS: Pelvis not imaged FINDINGS: Portable semi erect radiograph of the upper abdomen demonstrates a nasogastric tube tip an d side port in the stomach. Stomach partially decompressed. Persistent dilated small bowel loops le ft upper quadrant IMPRESSION: Nasogastric tube tip and side port in the stomach. TECHNICAL DOCUMENTATION: JOB ID: [id number] 2010 [employer]- All Rights Reserved Reading location - IP/workstation name: [email or web address]
[2020-02-16] MEDS: INSULIN LISPRO 100 UNIT/ML 3 ML VIAL SUBCUT SCH ×2 (17:12→22:18)
[2020-02-16] MEDS: KETOROLAC TROMETHAMINE INJ/PF 30 MG/1 ML SDV IV SCH ×2 (17:24→22:25)
[2020-02-16] MEDS: ACETAMINOPHEN 1,000 MG/100 ML RTUPB IV SCH ×2 (17:25→22:25)
--- NOTE | 2020-02-16 18:24 | Operative Report ---
Nonrecallable Operative Report DATE OF SURGERY: 02/16/20 PREOPERATIVE DIAGNOSIS: Incarcerated umbilical hernia POSTOPERATIVE DIAGNOSIS: 1. Strangulated umbilical hernia. 2. 7 cm portion of necrotic small bowel. OPERATION: 1. Exploratory laparotomy. 2. Small bowel resection. 3. Implantation of Vicryl mesh. 4. Repair of strangulated/incarcerated umbilical hernia. SURGEON: MANNY ASCENCIO ANESTHESIA: GA TISSUE REMOVED OR ALTERED: Necrotic small bowel COMPLICATIONS: Strangulated/necrotic small bowel, requiring resection ESTIMATED BLOOD LOSS: 50cc PROCEDURE: Drains/implants: 12 x 12 Vicryl mesh. Procedure in detail: After informed consent was obtained, the patient was brought to the operating room and laid in the supine position. The area of the abdomen was prepped and draped in a normal sterile fashion. An incision was created over the umbilical hernia in the midline. Dissection was carried thro ugh the subcutaneous tissues using sharp dissection only. The hernia sac entered. The small bowel was incarcerated and strangulated within the hernia. The bowel appeared necrotic and nonviable. The fascia was then opened proximally and distally, in order to facilitate removal of the necrotic small bowel. The small bowel was eviscerated, to a point that could be divided proximally and distally. Viable, healthy appearing small bowel was divided proximally and distally. The entire divided area measured approximately 15 cm in total length (with the necrotic area being approximately 7 cm). After the necrotic bowel was divided with the ROSELINE stapler, it was removed from the mesentery using serial clamps and ties. The necrotic small bowel was then passed off the field and sent to pathology. Next attention was turned to creation of an anastomosis. The small bowel was brought in apposition to one another. A stapled [id number] anastomosis was created on the antimesenteric border with the ROSELINE stapling device. The resulting defect was closed using the ROSELINE stapling device. 2 crotch stitches of 3-0 Vicryl were placed to buttress the anastomosis. The small mesenteric defect was closed using interrupted 3-0 Vicryl pop-off. Once the anastomosis was complete, it was tested. There was no evidence of leakage of liquid or air. The anastomosis was then returned to the abdominal cavity. Next, the hernia sac was resected, and attention was turned to closure. Owing to the patient's large size, a mesh was felt prudent. Vicryl mesh was placed into the abdominal cavity. It was affixed to the anterior abdominal wall circumferentially. The fascia was closed over top of the Vicryl mesh using #1 Prolene suture in [id number] fashion. The overlying skin was then closed using skin sravanthi. A dressing was placed, and the procedure was concluded. All sponge, instrument, and needle counts were correct x2. Condition: Stable.
[2020-02-16] MEDS: CEFOXITIN SODIUM 2 GM in DEXTROSE 5%-WATER 100 ML IV SCH (22:25)
[2020-02-17] MEDS: CEFOXITIN SODIUM 2 GM in DEXTROSE 5%-WATER 100 ML IV SCH (04:38)
[2020-02-17] MEDS: NORMAL SALINE 1000 ML 1,000 ML IV PRN ×2 (04:42→19:35)
[2020-02-17 06:02] LABS: ABSOLUTE LYMPHOCYTES (AUTO) 1.1 10^3/uL (0.5-4.7); ABSOLUTE MONOCYTES (AUTO) 0.8 10^3/uL (0.1-1.4); ABSOLUTE NEUT (AUTO) 8.3 10^3/uL (1.7-8.2); BASOPHILS % (AUTO) 0.4 % (0-2); EOSINOPHILS % (AUTO) 0.4 % (0-6); HEMATOCRIT 38.2 % (37.9-51.0); LYMPHOCYTES % (AUTO) 10.4 % (13-45); MEAN CORPUSCULAR HEMOGLOBIN 31.1 pg (27.0-33.4); MEAN CORPUSCULAR HGB CONC 34.5 g/dL (32.0-36.0); MEAN CORPUSCULAR VOLUME 90 fl (80-97); MONOCYTES % (AUTO) 8.2 % (3-13); PLATELET COUNT 299 10^3/uL (150-450); RED BLOOD COUNT 4.23 10^6/uL (4.35-5.55); RED CELL DISTRIBUTION WIDTH 13.3 % (11.5-14.0); SEGMENTED NEUTROPHILS % (AUTO) 80.6 % (42-78); TOTAL CELLS COUNTED % (AUTO) 100 %; WHITE BLOOD COUNT 10.3 10^3/uL (4.0-10.5)
[2020-02-17 06:11] LABS: ANION GAP 10 (5-19); BLOOD UREA NITROGEN 25 mg/dL (7-20); CARBON DIOXIDE 20 mmol/L (22-30); CHLORIDE 109 mmol/L (98-107); GLUCOSE 142 mg/dL (75-110)
[2020-02-17 06:12] LABS: HEMOGLOBIN 13.2 g/dL (13.5-17.0)
[2020-02-17] MEDS: ACETAMINOPHEN 1,000 MG/100 ML RTUPB IV SCH ×3 (06:25→21:09)
[2020-02-17] MEDS: KETOROLAC TROMETHAMINE INJ/PF 30 MG/1 ML SDV IV SCH ×3 (06:26→21:09)
[2020-02-17] MEDS: INSULIN LISPRO 100 UNIT/ML 3 ML VIAL SUBCUT SCH ×4 (07:24→21:18)
--- NOTE | 2020-02-17 09:02 | PDOC PROGRESS REPORT ---
Subjective Progress Note for:: 02/17/20 Reason For Visit: BOWEL OBSTRUCTION. INCARCERATED HERNIA Patient 18-hour status post oratory laparotomy, small bowel resection lysis of adhesions and intraperitoneal placement of mesh closure, without events overnight, Bucio catheter and nasogastric tube in position. Patient has not been out of bed. Physical Exam Vital Signs: Temp Pulse Resp BP Pulse Ox 99.0 F 91 18 140/80 H 94 02/17/20 07:55 02/17/20 07:42 02/17/20 07:42 02/17/20 07:42 02/17/20 07:42 Intake & Output 02/16/20 02/17/20 02/18/20 06:59 06:59 06:59 Intake Total 1999 42 Output Total 2340 Balance 1999 1922 Weight 149.685 kg 143.3 kg General appearance: PRESENT: no acute distress GI/Abdominal exam: PRESENT: other - Dressing dry and intact; no drain; no binder. Results Laboratory Results: 02/17/20 05:22 02/17/20 05:22 02/17/20 02/17/20 05:22 05:22 WBC 10.3 RBC 4.23 L Hgb 13.2 L D Hct 38.2 MCV 90 MCH 31.1 MCHC 34.5 RDW 13.3 Plt Count 299 Seg Neutrophils % 80.6 H Sodium 138.5 Potassium 4.0 Chloride 109 H Carbon Dioxide 20 L Anion Gap 10 BUN 25 H Creatinine 1.09 Est GFR ( Amer) > 60 Glucose 142 H Calcium 8.0 L Impressions: Abdomen/Pelvis CT 02/16/20 00:00 IMPRESSION: Umbilical hernia with an obstructed incarcerated small bowel loop, causing mid small bowel obstruction. KUB X-Ray 02/16/20 13:56 IMPRESSION: Nasogastric tube tip and side port in the stomach. Assessment & Plan - Diagnosis (1) Small bowel obstruction Is this a current diagnosis for this admission?: Yes Plan: Impression: Patient is 1 day status post exporter laparotomy, small bowel resection, repair of abdominal wall hernia with mesh, doing well early postoperative course Plan: 1. Incentive spirometer, coughing pillow, abdominal binder, out of bed to chair; importance of pulmonary toilet discussed with patient and nursing staff 2. May clamp NG tube if drainage diminishes 3. Pain controlled at this time with MS 4. Antibiotics to come off later today. (2) Umbilical hernia, incarcerated Is this a current diagnosis for this admission?: Yes (3) Morbid obesity Is this a current diagnosis for this admission?: Yes (4) New onset type 1 diabetes mellitus, uncontrolled Is this a current diagnosis for this admission?: Yes - Time Time Spent: 30 to 50 Minutes Critical Time spent with patient: Less than 15 minutes Medications reviewed and adjusted accordingly: Yes Anticipated Discharge Disposition: Home, Self Care Anticipated Discharge Timeframe: within 72 hours
[2020-02-17] MEDS: ENOXAPARIN SODIUM INJ 40 MG/0.4 ML DISP.SYRIN SUBCUT SCH (09:30)
[2020-02-18] MEDS: NORMAL SALINE 1000 ML 1,000 ML IV PRN ×2 (03:31→16:38)
[2020-02-18] MEDS: ACETAMINOPHEN 1,000 MG/100 ML RTUPB IV SCH ×3 (06:12→21:39)
[2020-02-18] MEDS: KETOROLAC TROMETHAMINE INJ/PF 30 MG/1 ML SDV IV SCH ×3 (06:13→21:38)
[2020-02-18] MEDS: INSULIN LISPRO 100 UNIT/ML 3 ML VIAL SUBCUT SCH ×4 (08:00→21:25)
[2020-02-18] MEDS ORDERED: OXYCODONE-ACETAMINOPHEN 5-325 MG TABLET PO PRN (08:44)
--- NOTE | 2020-02-18 08:47 | PDOC PROGRESS REPORT ---
Subjective Progress Note for:: 02/18/20 Reason For Visit: BOWEL OBSTRUCTION. INCARCERATED HERNIA Patient doing well, out of bed to chair, Bucio out and voided; tolerated nasogastric tube removal with no nausea or vomiting. Physical Exam Vital Signs: Temp Pulse Resp BP Pulse Ox 98.6 F 96 18 167/82 H 95 02/18/20 07:18 02/18/20 07:18 02/18/20 07:18 02/18/20 07:18 02/18/20 07:18 Intake & Output 02/17/20 02/18/20 02/19/20 06:59 06:59 06:59 Intake Total 4263 2192 Output Total 2340 1075 Balance 1923 1117 Weight 143.3 kg 146.1 kg General appearance: PRESENT: no acute distress GI/Abdominal exam: PRESENT: other - Abdominal dressing, sravanthi in place 1 small 1 cm area of challenged skin. No drainage foul smell. Results Laboratory Results: 02/17/20 05:22 02/17/20 05:22 Impressions: Abdomen/Pelvis CT 02/16/20 00:00 IMPRESSION: Umbilical hernia with an obstructed incarcerated small bowel loop, causing mid small bowel obstruction. KUB X-Ray 02/16/20 13:56 IMPRESSION: Nasogastric tube tip and side port in the stomach. Assessment & Plan - Diagnosis (1) Small bowel obstruction Is this a current diagnosis for this admission?: Yes Plan: Impression: Patient is 2 days status post exploratory midline surgery, small bowel resection and repair of abdominal wall hernia with Marlex mesh, doing well, satisfactory early postoperative course Plan: 1. IV antibiotics being discontinued 2. We will start clear liquids; start p.o. pain medication; start Colace 3. Permit patient to shower 4. Anticipate discharge home in the next 24 to 48 hours (2) Umbilical hernia, incarcerated Is this a current diagnosis for this admission?: Yes (3) Morbid obesity Is this a current diagnosis for this admission?: Yes (4) New onset type 1 diabetes mellitus, uncontrolled Is this a current diagnosis for this admission?: Yes - Time Time Spent: 30 to 50 Minutes Critical Time spent with patient: Less than 15 minutes Medications reviewed and adjusted accordingly: Yes Anticipated Discharge Disposition: Home, Self Care Anticipated Discharge Timeframe: within 48 hours
[2020-02-18] MEDS: ENOXAPARIN SODIUM INJ 40 MG/0.4 ML DISP.SYRIN SUBCUT SCH (10:36)
[2020-02-18] MEDS: DOCUSATE SODIUM 100 MG CAPSULE PO SCH ×3 (10:36→18:55)
[2020-02-19] MEDS: NORMAL SALINE 1000 ML 1,000 ML IV PRN ×2 (03:07→18:45)
[2020-02-19] MEDS: ACETAMINOPHEN 1,000 MG/100 ML RTUPB IV SCH (05:42)
[2020-02-19] MEDS: KETOROLAC TROMETHAMINE INJ/PF 30 MG/1 ML SDV IV SCH ×3 (05:42→22:00)
[2020-02-19] MEDS: INSULIN LISPRO 100 UNIT/ML 3 ML VIAL SUBCUT SCH ×4 (09:50→22:00)
[2020-02-19] MEDS: DOCUSATE SODIUM 100 MG CAPSULE PO SCH ×2 (09:52→18:43)
[2020-02-19] MEDS: ENOXAPARIN SODIUM INJ 40 MG/0.4 ML DISP.SYRIN SUBCUT SCH (09:53)
--- NOTE | 2020-02-19 14:21 | PDOC PROGRESS REPORT ---
Subjective Progress Note for:: 02/19/20 Reason For Visit: BOWEL OBSTRUCTION. INCARCERATED HERNIA Physical Exam Vital Signs: Temp Pulse Resp BP Pulse Ox 98.9 F 100 19 181/94 H 96 02/19/20 07:28 02/19/20 07:28 02/19/20 07:28 02/19/20 07:28 02/19/20 07:28 Intake & Output 02/18/20 02/19/20 02/20/20 06:59 06:59 06:59 Intake Total 2292 2715 100 Output Total 1075 500 Balance 1217 2215 100 Weight 146.1 kg 146.1 kg Results Laboratory Results: 02/17/20 05:22 02/17/20 05:22 Impressions: Abdomen/Pelvis CT 02/16/20 00:00 IMPRESSION: Umbilical hernia with an obstructed incarcerated small bowel loop, causing mid small bowel obstruction. KUB X-Ray 02/16/20 13:56 IMPRESSION: Nasogastric tube tip and side port in the stomach. Assessment & Plan - Diagnosis (1) Small bowel obstruction Is this a current diagnosis for this admission?: Yes (2) Umbilical hernia, incarcerated Is this a current diagnosis for this admission?: Yes - Time Anticipated Discharge Disposition: Home, Self Care Anticipated Discharge Timeframe: within 48 hours - Plan Summary Plan Summary: 44-year-old male status post laparotomy for a strangulated ventral hernia. Patient underwent small bowel resection with primary anastomosis and repair of his hernia. The patient reports doing relatively well today. He has been out of bed and ambulating. He is passing flatus. He is tolerating liquids. I will advance his diet today. If he continues to improve, anticipate discharge in the next 24 to 48 hours. Aggressive pulmonary toilet. Ambulate in the hallways.
[2020-02-19] MEDS: HYDRALAZINE HCL INJ/PF 20 MG/1 ML SDV IV PRN (16:15)
[2020-02-19] MEDS: LISINOPRIL 10 MG TABLET PO SCH (18:42)
[2020-02-20] MEDS: LISINOPRIL 10 MG TABLET PO SCH ×2 (05:50→17:21)
[2020-02-20] MEDS: KETOROLAC TROMETHAMINE INJ/PF 30 MG/1 ML SDV IV SCH ×3 (05:50→22:13)
[2020-02-20] MEDS: NORMAL SALINE 1000 ML 1,000 ML IV PRN ×2 (05:52→13:40)
--- NOTE | 2020-02-20 08:36 | PDOC PROGRESS REPORT ---
Subjective Progress Note for:: 02/20/20 Subjective:: comfortable Reason For Visit: BOWEL OBSTRUCTION. INCARCERATED HERNIA Physical Exam Vital Signs: Temp Pulse Resp BP Pulse Ox 98.2 F 84 18 174/90 H 97 02/20/20 04:42 02/20/20 04:42 02/20/20 04:42 02/20/20 04:50 02/20/20 04:42 Intake & Output 02/19/20 02/20/20 02/21/20 06:59 06:59 06:59 Intake Total 2715 2790 Output Total 500 350 Balance 2215 2440 Weight 146.1 kg 145.7 kg General appearance: PRESENT: no acute distress, morbidly obese Head exam: PRESENT: normocephalic Eye exam: PRESENT: EOMI Ear exam: PRESENT: normal external ear exam Mouth exam: PRESENT: moist Teeth exam: PRESENT: poor dentation Neck exam: PRESENT: full ROM Respiratory exam: PRESENT: clear to auscultation aniya Cardiovascular exam: PRESENT: RRR Pulses: PRESENT: +2 pedal pulses bilateral Vascular exam: PRESENT: normal capillary refill Breast: PRESENT: Normal GI/Abdominal exam: PRESENT: soft, other - sl cellulitis lower pannus below incision i ncision opened without sig drainage Rectal exam: PRESENT: deferred Extremities exam: PRESENT: full ROM, other Musculoskeletal exam: PRESENT: full ROM Neurological exam: PRESENT: altered, oriented to person, oriented to place Psychiatric exam: PRESENT: appropriate affect Skin exam: PRESENT: dry Results Laboratory Results: 02/17/20 05:22 02/17/20 05:22 Impressions: Abdomen/Pelvis CT 02/16/20 00:00 IMPRESSION: Umbilical hernia with an obstructed incarcerated small bowel loop, causing mid small bowel obstruction. KUB X-Ray 02/16/20 13:56 IMPRESSION: Nasogastric tube tip and side port in the stomach. Assessment & Plan - Time Anticipated Discharge Disposition: Home, Self Care Anticipated Discharge Timeframe: unk - Plan Summary Plan Summary: s/p repair of incarcerated strangulated umb hernia small bowel resection pt has return of bowel function started on diet yesterday still sl cellulitis lower abd pannus wound opened this am last 2 sravanthi removed and probed iwth q-tip no sig fluid plan will restart ancef cont observation dressing changes
[2020-02-20] MEDS: INSULIN LISPRO 100 UNIT/ML 3 ML VIAL SUBCUT SCH ×4 (08:43→22:27)
[2020-02-20] MEDS: DOCUSATE SODIUM 100 MG CAPSULE PO SCH ×2 (09:04→17:21)
[2020-02-20] MEDS: ENOXAPARIN SODIUM INJ 40 MG/0.4 ML DISP.SYRIN SUBCUT SCH (09:05)
[2020-02-20] MEDS ORDERED: CEFAZOLIN 2 GM/D5W RTU 2 GM/50 ML RTUPB IV SCH (12:00)
[2020-02-20] MEDS: CEFAZOLIN SODIUM 2 GM in DEXTROSE 5%-WATER 100 ML IV SCH ×2 (12:32→17:21)
[2020-02-21] MEDS: CEFAZOLIN SODIUM 2 GM in DEXTROSE 5%-WATER 100 ML IV SCH ×2 (00:01→05:55)
[2020-02-21] MEDS: NORMAL SALINE 1000 ML 1,000 ML IV PRN (00:02)
[2020-02-21] MEDS: HYDRALAZINE HCL INJ/PF 20 MG/1 ML SDV IV PRN (04:16)
[2020-02-21] MEDS: LISINOPRIL 10 MG TABLET PO SCH (05:56)
[2020-02-21] MEDS: KETOROLAC TROMETHAMINE INJ/PF 30 MG/1 ML SDV IV SCH (05:56)
[2020-02-21] MEDS: INSULIN LISPRO 100 UNIT/ML 3 ML VIAL SUBCUT SCH ×2 (08:00→11:26)
--- NOTE | 2020-02-21 08:43 | PDOC DISCHARGE SUMMARY ---
General - Admit/Disc Date/PCP Admission Date/Primary Care Provider: 02/16/20 09:15 CANDIDO MAZA MD Discharge Date: 02/21/20 - Discharge Diagnosis Final Diagnosis: Strangulated ventral hernia - Assessment Summary: 44-year-old male admitted with a strangulated periumbilical hernia. The patient underwent exploratory laparotomy with small bowel resection, anastomosis, and repair of his ventral hernia. The patient progressed well on the floor. He began tolerating a diet, passing flatus, and ambulating. He developed some redness of his abdominal wall, requiring antibiotics. By 02/21/2020, he was doing well, and it was felt that he had reached maximal hospital benefit. At this time he is medically fit for discharge. - Additional Information Resuscitation Status: Full Code Discharge Diet: As Tolerated Discharge Activity: Balance Activity w/Rest, No Lifting Over 10 Pounds, No L ifting/Push/Pulling Referrals: CANDIDO MAZA MD [Primary Care Provider] - Follow up as needed MANNY ASCENCIO MD [ACTIVE STAFF] - (1 week.) Prescriptions: Cefaclor 500 mg PO TID #21 capsule Hydrocodone/Acetaminophen [Knobel 10-325 mg Tablet] 1 tab PO Q6HP PRN #20 tablet PRN Reason: For Pain Home Medications: Atorvastatin Calcium [Lipitor 40 mg Tablet] 40 mg PO QHS 02/16/20 Lisinopril [Zestril] 40 mg PO BID 02/16/20 Metformin HCl 1,000 mg PO BID 02/16/20 Cefaclor 500 mg PO TID #21 capsule 02/21/20 Hydrocodone/Acetaminophen [Knobel 10-325 mg Tablet] 1 tab PO Q6HP PRN #20 tablet 02/21/20 Additional Information: Discharge home. Diet as tolerated. Activity: No lifting greater than 10 pounds x 6 weeks. Follow-up with [facility] in 7 to 10 days for staple removal. Knobel 10/325 mg p.o. every 6 hours PRN for pain. Okay to shower. No tub baths or swimming pools x2 weeks. Place dry dressing over incision daily and as needed. History of Present Illiness History of Present Illness: MAXIMILIAN TORRES is a 44 year old male Physical Exam Vital Signs: Temp Pulse Resp BP Pulse Ox 97.9 F 101 H 18 177/92 H 100 02/21/20 07:57 02/21/20 07:57 02/21/20 07:57 02/21/20 07:57 02/21/20 07:57 Intake & Output 02/20/20 02/21/20 02/22/20 06:59 06:59 06:59 Intake Total 2790 3435 Output Total 350 Balance 2440 3435 Weight 145.7 kg 114.5 kg Results Laboratory Results: WBC 10.3 10^3/uL (4.0-10.5) 02/17/20 05:22 RBC 4.23 10^6/uL (4.35-5.55) L 02/17/20 05:22 Hgb 13.2 g/dL (13.5-17.0) L D 02/17/20 05:22 Hct 38.2 % (37.9-51.0) 02/17/20 05:22 MCV 90 fl (80-97) 02/17/20 05:22 MCH 31.1 pg (27.0-33.4) 02/17/20 05:22 MCHC 34.5 g/dL (32.0-36.0) 02/17/20 05:22 RDW 13.3 % (11.5-14.0) 02/17/20 05:22 Plt Count 299 10^3/uL (150-450) 02/17/20 05:22 Lymph % (Auto) 10.4 % (13-45) L 02/17/20 05:22 Smyth % (Auto) 8.2 % (3-13) 02/17/20 05:22 Eos % (Auto) 0.4 % (0-6) 02/17/20 05:22 Baso % (Auto) 0.4 % (0-2) 02/17/20 05:22 Absolute Neuts (auto) 8.3 10^3/uL (1.7-8.2) H 02/17/20 05:22 Absolute Lymphs (auto) 1.1 10^3/uL (0.5-4.7) 02/17/20 05:22 Absolute Monos (auto) 0.8 10^3/uL (0.1-1.4) 02/17/20 05:22 Absolute Eos (auto) 0.0 10^3/uL (0.0-0.6) 02/17/20 05:22 Absolute Basos (auto) 0.0 10^3/uL (0.0-0.2) 02/17/20 05:22 Seg Neutrophils % 80.6 % (42-78) H 02/17/20 05:22 Sodium 138.5 mmol/L (137-145) 02/17/20 05:22 Potassium 4.0 mmol/L (3.6-5.0) 02/17/20 05:22 Chloride 109 mmol/L (98-107) H 02/17/20 05:22 Carbon Dioxide 20 mmol/L (22-30) L 02/17/20 05:22 Anion Gap 10 (5-19) 02/17/20 05:22 BUN 25 mg/dL (7-20) H 02/17/20 05:22 Creatinine 1.09 mg/dL (0.52-1.25) 02/17/20 05:22 Est GFR ( Amer) > 60 (>60) 02/17/20 05:22 Est GFR (MDRD) Non-Af > 60 (>60) 02/17/20 05:22 Glucose 142 mg/dL (75-110) H 02/17/20 05:22 POC Glucose 110 mg/dL (70-110) 02/21/20 07:57 Lactic Acid 1.5 mmol/L (0.7-2.1) 02/16/20 03:56 Calcium 8.0 mg/dL (8.4-10.2) L 02/17/20 05:22 Total Bilirubin 0.9 mg/dL (0.2-1.3) 02/16/20 03:47 Direct Bilirubin 0.3 mg/dL (0.0-0.4) 02/16/20 03:47 Neonat Total Bilirubin Not Reportable 02/16/20 03:47 Neonat Direct Bilirubin Not Reportable 02/16/20 03:47 Neonat Indirect Bili Not Reportable 02/16/20 03:47 AST 38 U/L (17-59) 02/16/20 03:47 ALT 45 U/L (<50) 02/16/20 03:47 Alkaline Phosphatase 118 U/L (38-126) 02/16/20 03:47 Total Protein 7.0 g/dL (6.3-8.2) 02/16/20 03:47 Albumin 4.7 g/dL (3.5-5.0) 02/16/20 03:47 Lipase 47.0 U/L (23-300) 02/16/20 03:47 Urine Color YELLOW 02/16/20 06:41 Urine Appearance TURBID 02/16/20 06:41 Urine pH 5.0 (5.0-9.0) 02/16/20 06:41 Ur Specific [place] 1.026 02/16/20 06:41 Urine Protein 100 mg/dL (NEGATIVE) H 02/16/20 06:41 Urine Glucose (UA) NEGATIVE mg/dL (NEGATIVE) 02/16/20 06:41 Urine Ketones 20 mg/dL (NEGATIVE) H 02/16/20 06:41 Urine Blood NEGATIVE (NEGATIVE) 02/16/20 06:41 Urine Nitrite (Reflex) NEGATIVE (NEGATIVE) 02/16/20 06:41 Urine Bilirubin NEGATIVE (NEGATIVE) 02/16/20 06:41 Urine Urobilinogen NEGATIVE mg/dL (<2.0) 02/16/20 06:41 Leukocyte Esterase Rfl NEGATIVE (NEGATIVE) 02/16/20 06:41 Urine RBC (Auto) 0 /HPF 02/16/20 06:41 Urine Bacteria (Auto) TRACE /HPF 02/16/20 06:41 Urine WBC (Reflex) 1 /HPF 02/16/20 06:41 Amorphous Sediment Auto TRACE /HPF 02/16/20 06:41 Urine Mucus (Auto) MANY /LPF 02/16/20 06:41 Urine Ascorbic Acid NEGATIVE (NEGATIVE) 02/16/20 06:41 Impressions: Abdomen/Pelvis CT 02/16/20 00:00 IMPRESSION: Umbilical hernia with an obstructed incarcerated small bowel loop, causing mid small bowel obstruction. KUB X-Ray 02/16/20 13:56 IMPRESSION: Nasogastric tube tip and side port in the stomach.
[2020-02-21 09:27] VITALS: BP 181/112
[2020-02-21] MEDS: ENOXAPARIN SODIUM INJ 40 MG/0.4 ML DISP.SYRIN SUBCUT SCH (11:31)
[2020-02-21] MEDS: DOCUSATE SODIUM 100 MG CAPSULE PO SCH (11:31)
== END 2020-02-21 11:20 | disposition home or self-care (01) | DRG 330 ==
LOC: ER 22:23 → EH 02-16 09:15 → 4W 02-16 15:35 → 5 02-18 04:00
PROVIDERS: ADMIT Surgery; ATTEND Surgery
PROC: 0WUF0JZ Supplement Abdominal Wall with Synthetic Substitute, Open Approach (ICD-10-PCS; 2020-02-16)
PROC: 0DB80ZZ Excision of Small Intestine, Open Approach (ICD-10-PCS; principal; 2020-02-16 10:45)
DX: K42.0 Umbilical hernia with obstruction, without gangrene (principal); Z68.42 Body mass index [BMI] 45.0-49.9, adult; L03.311 Cellulitis of abdominal wall; I10 Essential (primary) hypertension; F32.9 Major depressive disorder, single episode, unspecified; E11.9 Type 2 diabetes mellitus without complications; E66.01 Morbid (severe) obesity due to excess calories; Z79.2 Long term (current) use of antibiotics; Z79.84 Long term (current) use of oral hypoglycemic drugs; Z79.899 Other long term (current) drug therapy
CPT/HCPCS: 36415; 74018; 74177; 790; 80048; 80053; 81001; 82962; 83605; 83690; 85025; 88307; 94799; 96361; 96374; 96375; 99140; 99285; C1758; C1781; J0131; J0360; J0690; J0694; J1170; J1650; J1815; J1885; J2250; J2270; J2405; J2704; J2710; J3010; J3490; J7030; J7060